=== PATIENT | male | born 1955 | race Caucasian/White ===

== ENCOUNTER 2024-01-07 14:05 | Outpatient (AMB) | payer MEDICARE, SELFPAY ==
--- NOTE | 2024-01-07 14:06 | MHC.OFFVIS ---
Vital Signs 01/07/24 14:17 Weight 160 lb BP 117/59 L Blood Pressure Location Rt brachial Position Sitting Pulse 74 Intake Visit Reasons: 2nd opinion~Diverticular disease of colon Intake Note: This patient presents for 2nd opinion , diverticular disease of colon. 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 He had been in his usual state of health until about a month ago when he said he noticed air coming out of his urethra when he urinated. He went to see his primary care physician who had ordered a CT scan. A couple of days later, he was asked to go to the ER as his CAT scan has shown suggestion of a colovesical fistula. He was admitted for a week. He also had an IR drain placed as he was told he had an abscess. He was discharged but a few days later, he says that he saw more fecal material from his urine so he was readmitted for about 2-3 days. He was given more antibiotics. He said he was seen by a surgeon there in [facility] who told him that it would be best to allow the inflammatory process to settle down before doing any resection He says that he was referred to a urologist last week who inserted a Sparks catheter. His drain was also removed last week He denies any recall of any previous episodes of acute diverticulitis. He said he really has not had any abdominal pain. He says that he had a colonoscopy about 2-3 years ago and was told he had diverticulosis. He feels well overall and denies any fever or symptoms of urinary tract infection. He says he has remained active. [facility] Medical History (Updated 01/07/24 @ 14:50 by Jameson Tomas MD) Colovesical fistula Surgical History History of knee surgery Social History Alcohol intake: never Patient Tobacco Use Status: Never used Tobacco Review of Systems Const Denies chills and Denies fever(s) Card Denies chest pain, Denies dyspnea and Denies dyspnea on exertion Resp Denies cough, Denies dyspnea and Denies dyspnea on exertion GI Denies hematochezia and Denies change in bowel habits Denies hematuria and Denies difficulty urinating Musc Denies back pain and Denies limited range of motion Neuro Denies focal weakness and Denies convulsions Psych Denies depression and Denies mood swings Physical Exam Vital Signs: Last Vital Signs Pulse 74 01/07/24 14:17 BP 117/59 L 01/07/24 14:17 Const General: comfortable and no acute distress Orientation/consciousness: patient oriented x3 Neck Neck: Yes no lymphadenopathy Resp Auscultation: clear to auscultation bilaterally Cardio Rhythm: regular rhythm GI Other: No tenderness Palpation (GI): Soft to palpation, nontender and no guarding Other: Sparks catheter in place Neuro General: patient oriented x3 Assessment & Plan Assessment & Plan (1) Colovesical fistula: Code(s): 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 for a colovesical fistula from diverticular disease. He was referred to me for a 2nd opinion I had a long discussion with him about treatment goals. I will have to review all his studies and I have started the process of getting his CAT scan images. I told him that if this is indeed a colovesical fistula from diverticular disease, the treatment would be surgical resection of the disease segment of sigmoid. He may need to have a temporary diverting ileostomy as well after that. I explained to the technique of hand assisted laparoscopic sigmoid resection, possible diverting stoma. I reviewed the risks including but not limited to bleeding, infections, staple line leak, bowel injury, injury to the rest of the intraperitoneal organs including the urinary tract, blood clots, pneumonia, stoma complications, as well as the benefits and alternatives. I reviewed with him what to expect postoperatively I will review all his imaging studies. I will discuss this with his primary physician Dr. Fuller. Coding Level of Care Code New Pt Level 4 (77930) Diagnoses Colovesical fistula N32.1
[2024-01-07 14:17] VITALS: BP 117/59; PULSE 74
== END 2024-01-07 14:45 | disposition home or self-care (01) ==
PROVIDERS: PCP Internal Medicine; Referring Provider Internal Medicine; Visit Provider Surgery
DX: N32.1 Vesicointestinal fistula (principal)
CPT/HCPCS: 99204

== ENCOUNTER → 2024-01-07 14:05 | Outpatient (BNVA) | payer MEDICARE, SELFPAY | PROVIDERS: PCP Internal Medicine; Referring Provider Internal Medicine; Visit Provider Surgery | DX: N32.1 Vesicointestinal fistula (principal) | CPT/HCPCS: 99202 ==

== ENCOUNTER 2024-01-08 10:18 | Outpatient (REF) | payer MEDICARE, SELFPAY | END 2024-01-08 10:19 | disposition home or self-care (01) | LOC: CF 10:18 | DX: Z13.89 Encounter for screening for other disorder (principal) ==

== ENCOUNTER 2024-01-25 13:09 | Outpatient (AMB) | payer MEDICARE, SELFPAY ==
--- NOTE | 2024-01-25 13:11 | MHC.OFFVIS ---
Vital Signs 01/25/24 13:20 Height 5 ft 8 in Weight 153 lb 8 oz BMI 23.3 BP 104/51 L Blood Pressure Location Lt brachial Position Sitting Pulse 83 Intake Visit Reasons: colovesical fistula Intake Note: This patient presents for an assessment for colovesical fistula. 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 He had been in his usual state of health until about almost 2 months ago when he said he noticed air coming out of his urethra when he urinated. He went to see his primary care physician who had ordered a CT scan. A couple of days later, he was asked to go to the ER as his CAT scan has shown suggestion of a colovesical fistula. He was admitted for a week. He also had an IR drain placed as he was told he had an abscess. He was discharged but a few days later, he says that he saw more fecal material from his urine so he was readmitted for about 2-3 days. He was given more antibiotics. He said he was seen by a surgeon there in [facility] who told him that it would be best to allow the inflammatory process to settle down before doing any resection He says that he was referred to a urologist last month who inserted a Sparks catheter. He denies any recall of any previous episodes of acute diverticulitis. He said he really has not had any abdominal pain. He says that he had a colonoscopy about 2-3 years ago and was told he had diverticulosis. He feels well overall and denies any fever or symptoms of urinary tract infection. He actually had seen a surgeon in [facility] already and is scheduled to have sigmoid resection in 2 days. He said he wanted assurance about the procedure as he was extremely anxious about this. He continues to pass some particles the urine. He denies recall of having pneumaturia recently. He still has his Sparks catheter in place. [facility] Medical History Colovesical fistula Surgical History History of knee surgery Social History Alcohol intake: never Patient Tobacco Use Status: Never used Tobacco Review of Systems Const Denies chills and Denies fever(s) Card Denies chest pain at rest Resp Denies cough GI Denies abdominal pain Physical Exam Const General: comfortable and no acute distress Resp Effort & Inspection: normal respiratory effort Cardio Rate: regular rate GI Palpation (GI): Soft to palpation, not firm, nontender and no guarding Other: Sparks catheter in place Assessment & Plan Assessment & Plan (1) 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 He states that he is scheduled to have sigmoid resection possible bladder repair and possible stoma for his colovesical fistula in 2 days in [facility]. I assured him that this is the correct procedure to treat his colovesical fistula. He was very anxious about going through the procedure. He actually asked me when would be the earliest that I could do the procedure for him if he chose to come here. I did tell him that I would not be able to schedule him in the OR probably until next week or the week after. He says he is going to stay with his surgeon in [facility]. He is otherwise welcome to come back to me down the line if he has any questions or concerns. His was with him during the visit. Coding Level of Care Code Est Pt Level 3 (60210) Diagnoses Colovesical fistula N32.1
[2024-01-25 13:20] VITALS: BP 104/51; PULSE 83; BMI 23.3
== END 2024-01-25 13:33 | disposition home or self-care (01) ==
PROVIDERS: PCP Internal Medicine; Visit Provider Surgery
DX: N32.1 Vesicointestinal fistula (principal)
CPT/HCPCS: 99213

== ENCOUNTER → 2024-01-25 13:09 | Outpatient (BNVA) | payer MEDICARE, SELFPAY | PROVIDERS: PCP Internal Medicine; Visit Provider Surgery | DX: N32.1 Vesicointestinal fistula (principal) | CPT/HCPCS: 99212 ==